=== PATIENT | male | born 1940 | race Caucasian/White ===

== ENCOUNTER 2021-07-23 18:41 | Inpatient (IN) | payer MEDICARE, BC ==
[~2021-07-23 18:41] MED LIST: Iopamidol 370 76% 100 ML VIAL ONE
[2021-07-23] MEDS ORDERED: Rocuronium Bromide 10 MG/ML (10ML VIAL) ONE (18:54)
[2021-07-23] MEDS ORDERED: EPINEPHrine 1 MG/10 ML Abboject SYRINGE ONE (18:55)
[2021-07-23 19:20] LABS: #Lymphocytes 0.9 thou/uL (1.20-3.40); #Neutrophils 10.3 thou/uL (1.40-6.50); %Basophils 0.1 % (0.0-1.0); %Lymphocytes 7.2 % (21.0-51.0); %Monocytes 8.3 % (0.0-10.0); %Neutrophils 84.4 % (42.0-75.0); Hemoglobin 14.6 g/dL (14.0-18.0); Mean Corpuscular HGB CONC 32.8 g/dL (32.0-36.0); Mean Corpuscular Hemoglobin 31.8 pg (27.0-31.0); Mean Corpuscular Volume 96.9 fL (78.0-98.0); Mean Platelet Volume 10.3 fL (7.4-10.4); Platelet Count 134 thou/uL (130-400); RBC Distribution Width 12.9 % (11.5-14.5); Red Blood Cell (RBC) Count 4.59 mill/uL (4.70-6.10); White Blood Cell (WBC) Count 12.2 thou/uL (4.8-10.8)
[2021-07-23 19:35] LABS: Actual Bicarbonate (HCO3a) 23.2 mEq/L (22-28); Analyzer IN Cardio ER; Base Excess (BEa) -3.1 mEq/L (-2.0 to +3.0); CO2 Tension 46.2 mmHg (35.0-45.0); Calcium, Ionized (arterial) 1.24 mmol/L (1.12-1.30); Carboxyhemoglobin (COHb) 0.3 gm% (0.0-3.0); Hemoglobin (Hb) 13.9 g/dL (14.0-18.0); O2 Tension (PaO2), arterial 128.2 mmHg (> 60.0); pH, Arterial 7.32 (7.35-7.45)
[2021-07-23 19:37] LABS: Puncture Site LRA
[2021-07-23 19:45] LABS: ALT (SGPT) 49 U/L (8-55); AST (SGOT) 150 U/L (5-34); Albumin 3.7 g/dL (3.4-4.8); Alkaline Phosphatase 54 U/L (40-110); Anion Gap 16 mmol/L (10-20); BUN (Urea Nitrogen) 52 mg/dL (8.4-25.7); Bilirubin, Total 0.4 mg/dL (0.2-1.2); Calc. Creatinine Clearance 0 mL/min (70-130); Calcium 9.6 mg/dL (7.8-10.44); Carbon Dioxide 26 mmol/L (23-31); Chloride 104 mmol/L (98-107); Globulin 2.9 g/dL (2.4-3.5); Glucose 97 mg/dL (83-110); Lipase 40 U/L (8-78); Potassium 4.2 mmol/L (3.5-5.1); Protein, Total 6.6 g/dL (5.8-8.1); Sodium 142 mmol/L (136-145)
[2021-07-23 19:58] LABS: CK (CPK) 5235 U/L (30-200)
[2021-07-23 20:13] LABS: CKMB 21.9 ng/mL (0-6.6)
[2021-07-23 20:18] LABS: SARS-CoV-2 NAA Rapid Test DETECTED (NotDetected)
[2021-07-23] MEDS ORDERED: Piperacillin/Tazobactam 4.5 GM VIAL ONE (20:26)
[2021-07-23 20:44] LABS: Bilirubin Negative (Negative); Blood, Urine 3+ (Negative); Clarity Clear (Clear); Glucose, Urine (Dipstick) Normal (Negative); Ketone, Urine Trace mg/dL (Negative); Leukocyte Negative Leu/uL (Negative); Mucous/LPF Rare LPF (<2+); Nitrite Negative (Negative); Protein, Urine (Dipstick) 70 mg/dL (Neg-Trace); RBC/HPF 0-3 HPF (0-3); Specific Gravity, Urine 1.013 (1.002-1.036); Squamous Epithelial 0-3 HPF (0-3); Urobilinogen Normal mg/dL (Less than 2); WBC/HPF 0-3 HPF (0-3); pH, Urine 5.5 (5.0-9.0)
[2021-07-23 20:49] LABS: Bacteria/HPF Rare-Few HPF (None Seen)
[2021-07-23] MEDS ORDERED: Vancomycin 1 GM/200 ML BAG ONE (20:56)
[2021-07-23] MEDS ORDERED: Albuterol Sulfate 2.5 mg/3 ml Neb NEB PRN ×2 (21:03→21:17)
[2021-07-23] MEDS ORDERED: Pharmacy to Dose VANCOMYCIN AND MEROPENEM IVPB PRN (21:07)
[2021-07-23] MEDS ORDERED: Albuterol 200 PUFF (6.7GM INHALER) INH PRN (21:13)
[2021-07-23] MEDS ORDERED: Atropine Sulfate 1 mg/10 ml Syringe ONE (21:26)
[2021-07-23 21:29] LABS: Amphetamine Not Detected (NotDetected); Barbiturates Screen Not Detected (NotDetected); Benzodiazepine Screen Not Detected (NotDetected); Cocaine Metabolite Screen Not Detected (NotDetected); Methadone Not Detected (NotDetected); Methamphetamine Not Detected (NotDetected); Opiate Screen Not Detected (NotDetected); Oxycodone Screen Not Detected (NotDetected); Phencyclidine (PCP) Not Detected (NotDetected); THC/Cannabinoid Screen Not Detected (NotDetected); Tricyclic Screen Not Detected (NotDetected)
[2021-07-23] MEDS ORDERED: Thiamine HCl 200 MG/2 ML VIAL SLOW IVP SCH (22:00)
[2021-07-23] MEDS ORDERED: Norepinephrine 8 MG/0.9% NS 250 ML IVPB PRN (22:09)
[2021-07-23] MEDS ORDERED: DISCONTINUE PREVIOUS NARCOTIC PAIN MEDICATIONS AND BENZODIAZEPINES FS SCH (22:15)
[2021-07-23] MEDS ORDERED: Ventilator Sedation Protocol 1 EACH FS SCH (22:15)
[2021-07-23] MEDS ORDERED: Fentanyl BOLUS 250 ML IVPB PRN (22:15)
[2021-07-23] MEDS ORDERED: Propofol BOLUS 1,000 MG/100 ML VIAL IV PRN (22:15)
[2021-07-23 22:21] LABS: Magnesium 1.9 mg/dL (1.6-2.6)
[2021-07-23 22:26] LABS: Critical Call Chem Troponin I RESULT DECREASING; Troponin I 2.031 ng/mL (< 0.028)
[2021-07-23] MEDS: Lorazepam 2 MG/ML VIAL SLOW IVP PRN (22:45)
[2021-07-23] MEDS: Dexamethasone 10 MG/ML VIAL SLOW IVP SCH (23:16)
[2021-07-23] MEDS: Sodium Chloride 0.9% 1,000 ML IV SCH (23:16)
[2021-07-23] MEDS: Famotidine 20 MG TAB PO SCH (23:16)
[2021-07-24 01:38] LABS: Critical Call Chem Troponin I RESULT DECREASING; Troponin I 1.872 ng/mL (< 0.028)
[2021-07-24] MEDS ORDERED: Meropenem 1 GM in Sodium Chloride 0.9% 100 ML IVPB SCH (02:00)
[2021-07-24] MEDS ORDERED: DOBUTamine 500 mg/250 ml 250 ML IVPB SCH (03:00)
[2021-07-24 03:57] LABS: #Lymphocytes 0.8 thou/uL (1.20-3.40); #Monocytes 0.5 thou/uL (0.11-0.59); %Basophils 0.1 % (0.0-1.0); %Eosinophils 0.1 % (0.0-10.0); %Lymphocytes 6.6 % (21.0-51.0); %Monocytes 4.2 % (0.0-10.0); Hemoglobin 12.9 g/dL (14.0-18.0); Mean Corpuscular HGB CONC 32.2 g/dL (32.0-36.0); Mean Corpuscular Hemoglobin 31.5 pg (27.0-31.0); Mean Corpuscular Volume 97.9 fL (78.0-98.0); Mean Platelet Volume 10.2 fL (7.4-10.4); Platelet Count 114 thou/uL (130-400); RBC Distribution Width 12.9 % (11.5-14.5); Red Blood Cell (RBC) Count 4.09 mill/uL (4.70-6.10); White Blood Cell (WBC) Count 11.3 thou/uL (4.8-10.8)
[2021-07-24 04:16] LABS: Anion Gap 14 mmol/L (10-20); BUN (Urea Nitrogen) 44 mg/dL (8.4-25.7); Calc. Creatinine Clearance 38 mL/min (70-130); Carbon Dioxide 19 mmol/L (23-31); Chloride 111 mmol/L (98-107); Glucose 120 mg/dL (83-110); Potassium 4.2 mmol/L (3.5-5.1); Sodium 140 mmol/L (136-145)
[2021-07-24 04:18] LABS: ALT (SGPT) 39 U/L (8-55); AST (SGOT) 101 U/L (5-34); Albumin 2.8 g/dL (3.4-4.8); Alkaline Phosphatase 39 U/L (40-110); Bilirubin, Direct 0.3 mg/dL (0.1-0.3); Bilirubin, Total 0.4 mg/dL (0.2-1.2); CRP (Inflammatory) 24.22 mg/dL (= or < 0.5); Magnesium 2.5 mg/dL (1.6-2.6); Protein, Total 5.7 g/dL (5.8-8.1)
[2021-07-24] MEDS: fentaNYL Citrate-0.9 % NaCl/PF 100 ML IVPB SCH ×2 (05:12→22:27)
[2021-07-24] MEDS: Sodium Chloride 0.9% 1,000 ML IV SCH ×2 (06:04→09:57)
[2021-07-24] MEDS ORDERED: Apixaban 5 MG TAB PO SCH (09:00)
[2021-07-24] MEDS: Dexamethasone 10 MG/ML VIAL SLOW IVP SCH ×2 (09:37→20:56)
[2021-07-24] MEDS: Ascorbic Acid 500 mg Chewable Tablet PO SCH (09:37)
[2021-07-24] MEDS: Heparin 5,000 UNITS/ML VIAL SC SCH ×3 (09:37→20:55)
[2021-07-24] MEDS: Folic Acid 1 MG TAB PO SCH (09:38)
[2021-07-24] MEDS: Thiamine 100 MG TAB PO SCH (09:38)
[2021-07-24] MEDS: Zinc Sulfate 220 MG CAP PO SCH (09:38)
[2021-07-24] MEDS: Meropenem 500 MG in Sodium Chloride 0.9% 100 ML IVPB SCH ×2 (09:45→22:28)
[2021-07-24] MEDS: Propofol 1,000 MG/100 ML VIAL IV PRN ×2 (10:14→19:24)
[2021-07-24] MEDS: Lactated Ringer's 1,000 ML IV SCH (13:08)
[2021-07-24 13:12] LABS: Legionella Urinary Ag Negative (Negative); Strep pneumo Urine Ag NEGATIVE (NEGATIVE)
[2021-07-24 15:23] LABS: INR-International Normal Ratio 1.1; PTT 41.2 sec (22.9-36.1); Prothrombin Time 14.7 sec (12.0-14.7)
[2021-07-24] MEDS: Lorazepam 2 MG/ML VIAL SLOW IVP PRN (19:16)
[2021-07-24 20:14] LABS: Vancomycin, Random 5.9 ug/mL (See Comment)
[2021-07-24] MEDS: hydrALAZINE 20 MG/ML VIAL SLOW IVP PRN (20:25)
[2021-07-24] MEDS: Senokot S 8.6-50 MG TAB PO SCH (20:55)
[2021-07-24] MEDS: Famotidine 20 MG TAB PO SCH (20:55)
[2021-07-24] MEDS ORDERED: Vancomycin 1 GM in Premix Bag 1 BAG IVPB SCH (21:00)
[2021-07-24] MEDS ORDERED: VANCOMYCIN 1.25 GM/250 ML BAG 1.25 GM in Premix Bag 1 BAG IVPB SCH (21:00)
[2021-07-25] MEDS: Lactated Ringer's 1,000 ML IV SCH (01:36)
[2021-07-25] MEDS: Propofol 1,000 MG/100 ML VIAL IV PRN (01:36)
[2021-07-25] MEDS: hydrALAZINE 20 MG/ML VIAL SLOW IVP PRN ×3 (03:04→21:12)
[2021-07-25 04:29] LABS: #Lymphocytes 0.4 thou/uL (1.20-3.40); #Monocytes 0.4 thou/uL (0.11-0.59); #Neutrophils 12.2 thou/uL (1.40-6.50); %Eosinophils 0.1 % (0.0-10.0); %Lymphocytes 3.3 % (21.0-51.0); %Monocytes 3.2 % (0.0-10.0); %Neutrophils 93.4 % (42.0-75.0); Hemoglobin 12.3 g/dL (14.0-18.0); Mean Corpuscular HGB CONC 31.7 g/dL (32.0-36.0); Mean Corpuscular Volume 97.6 fL (78.0-98.0); Mean Platelet Volume 10.1 fL (7.4-10.4); Platelet Count 147 thou/uL (130-400); Red Blood Cell (RBC) Count 3.97 mill/uL (4.70-6.10)
[2021-07-25 04:47] LABS: Anion Gap 13 mmol/L (10-20); BUN (Urea Nitrogen) 41 mg/dL (8.4-25.7); Calc. Creatinine Clearance 52 mL/min (70-130); Calcium 9.5 mg/dL (7.8-10.44); Carbon Dioxide 22 mmol/L (23-31); Chloride 114 mmol/L (98-107); Glucose 127 mg/dL (83-110); Potassium 3.7 mmol/L (3.5-5.1); Sodium 145 mmol/L (136-145)
[2021-07-25 04:49] LABS: CK (CPK) 481 U/L (30-200); CRP (Inflammatory) 22.96 mg/dL (= or < 0.5); Magnesium 1.9 mg/dL (1.6-2.6)
[2021-07-25] MEDS ORDERED: DOBUTamine 500 mg/250 ml 250 ML IVPB SCH (05:44)
[2021-07-25 07:38] LABS: Actual Bicarbonate (HCO3a) 19.5 mEq/L (22-28); Analyzer IN Cardio OR; Base Excess (BEa) -4.6 mEq/L (-2.0 to +3.0); Carboxyhemoglobin (COHb) 0.5 gm% (0.0-3.0); Hemoglobin (Hb) 12.4 g/dL (14.0-18.0); O2 Tension (PaO2), arterial 84.4 mmHg (> 60.0); Potassium - ABG Lab 3.79 mmol/L (3.70-5.30); pH, Arterial 7.39 (7.35-7.45)
[2021-07-25] MEDS: Meropenem 1 GM in Sodium Chloride 0.9% 100 ML IVPB SCH ×2 (07:45→15:57)
[2021-07-25 07:48] LABS: Puncture Site RRA
[2021-07-25] MEDS: Ascorbic Acid 500 mg Chewable Tablet PO SCH (10:00)
[2021-07-25] MEDS: Polyethylene Glycol 3350 17 GM Packet PER TUBE SCH (10:00)
[2021-07-25] MEDS: Zinc Sulfate 220 MG CAP PO SCH (10:00)
[2021-07-25] MEDS: Dexamethasone 10 MG/ML VIAL SLOW IVP SCH ×2 (10:01→20:40)
[2021-07-25] MEDS: BARICITINIB 2 MG TAB PO SCH (10:01)
[2021-07-25] MEDS: Folic Acid 1 MG TAB PO SCH (10:01)
[2021-07-25] MEDS: Senokot S 8.6-50 MG TAB PO SCH ×2 (10:01→20:40)
[2021-07-25] MEDS: Thiamine 100 MG TAB PO SCH (10:01)
[2021-07-25] MEDS: Heparin 5,000 UNITS/ML VIAL SC SCH ×3 (10:01→20:40)
[2021-07-25] MEDS: fentaNYL Citrate-0.9 % NaCl/PF 100 ML IVPB SCH (19:10)
[2021-07-25] MEDS ORDERED: Sodium Bicarbonate Tab 325 MG TAB PER TUBE PRN (19:30)
[2021-07-25] MEDS ORDERED: Pancrelipase DR 12,000 1 CAP FS PRN (19:30)
[2021-07-25 20:20] LABS: Vancomycin, Trough 10.9 ug/mL
[2021-07-25] MEDS: Famotidine 20 MG TAB PO SCH (20:40)
[2021-07-25] MEDS: Lorazepam 2 MG/ML VIAL SLOW IVP PRN (20:40)
[2021-07-25] MEDS: VANCOMYCIN 1.75 GM/350 ML BAG 1.75 GM in Premix Bag 1 BAG IVPB SCH (21:56)
[2021-07-26] MEDS: Meropenem 1 GM in Sodium Chloride 0.9% 100 ML IVPB SCH ×3 (00:06→16:03)
[2021-07-26] MEDS: Lorazepam 2 MG/ML VIAL SLOW IVP PRN ×4 (02:36→20:07)
[2021-07-26] MEDS: Morphine 4 MG/ML VIAL SLOW IVP PRN (03:00)
[2021-07-26 04:47] LABS: #Lymphocytes 0.4 thou/uL (1.20-3.40); #Monocytes 0.6 thou/uL (0.11-0.59); #Neutrophils 11.2 thou/uL (1.40-6.50); %Basophils 0.2 % (0.0-1.0); %Eosinophils 0.1 % (0.0-10.0); %Lymphocytes 3.1 % (21.0-51.0); %Monocytes 4.5 % (0.0-10.0); %Neutrophils 92.1 % (42.0-75.0); Hemoglobin 12.6 g/dL (14.0-18.0); Mean Corpuscular HGB CONC 33.4 g/dL (32.0-36.0); Mean Corpuscular Hemoglobin 32.8 pg (27.0-31.0); Mean Corpuscular Volume 98.2 fL (78.0-98.0); Mean Platelet Volume 9.4 fL (7.4-10.4); Platelet Count 186 thou/uL (130-400); RBC Distribution Width 13.1 % (11.5-14.5); Red Blood Cell (RBC) Count 3.86 mill/uL (4.70-6.10); White Blood Cell (WBC) Count 12.2 thou/uL (4.8-10.8)
[2021-07-26 05:18] LABS: Anion Gap 11 mmol/L (10-20); BUN (Urea Nitrogen) 47 mg/dL (8.4-25.7); Calc. Creatinine Clearance 59 mL/min (70-130); Calcium 9.9 mg/dL (7.8-10.44); Carbon Dioxide 26 mmol/L (23-31); Chloride 115 mmol/L (98-107); Glucose 136 mg/dL (83-110); Potassium 3.7 mmol/L (3.5-5.1); Sodium 148 mmol/L (136-145)
[2021-07-26 05:19] LABS: ALT (SGPT) 27 U/L (8-55); AST (SGOT) 29 U/L (5-34); Albumin 2.7 g/dL (3.4-4.8); Alkaline Phosphatase 41 U/L (40-110); Bilirubin, Direct 0.2 mg/dL (0.1-0.3); Bilirubin, Total 0.2 mg/dL (0.2-1.2); Protein, Total 5.8 g/dL (5.8-8.1)
[2021-07-26 05:20] LABS: CRP (Inflammatory) 12.29 mg/dL (= or < 0.5)
[2021-07-26] MEDS: Folic Acid 1 MG TAB PO SCH (08:19)
[2021-07-26] MEDS: Polyethylene Glycol 3350 17 GM Packet PER TUBE SCH (08:19)
[2021-07-26] MEDS: Famotidine 20 MG TAB PO SCH ×2 (08:19→20:06)
[2021-07-26] MEDS: Senokot S 8.6-50 MG TAB PO SCH ×2 (08:19→20:06)
[2021-07-26] MEDS: Dexamethasone 10 MG/ML VIAL SLOW IVP SCH ×2 (08:20→20:07)
[2021-07-26] MEDS: Thiamine 100 MG TAB PO SCH (08:20)
[2021-07-26] MEDS: Zinc Sulfate 220 MG CAP PO SCH (08:20)
[2021-07-26] MEDS: BARICITINIB 2 MG TAB PO SCH (08:20)
[2021-07-26] MEDS: Ascorbic Acid 500 mg Chewable Tablet PO SCH (08:20)
[2021-07-26] MEDS: Heparin 5,000 UNITS/ML VIAL SC SCH ×3 (08:21→20:06)
[2021-07-26] MEDS: hydrALAZINE 20 MG/ML VIAL SLOW IVP PRN ×3 (11:47→20:16)
[2021-07-26] MEDS: Dextrose 5 %-0.45 % NaCl 1,000 ML IV SCH (13:33)
[2021-07-26] MEDS: VANCOMYCIN 1.75 GM/350 ML BAG 1.75 GM in Premix Bag 1 BAG IVPB SCH (20:07)
[2021-07-27] MEDS: Meropenem 1 GM in Sodium Chloride 0.9% 100 ML IVPB SCH ×2 (00:08→08:11)
[2021-07-27] MEDS: Morphine 4 MG/ML VIAL SLOW IVP PRN ×2 (00:46→03:40)
[2021-07-27] MEDS: Lorazepam 2 MG/ML VIAL SLOW IVP PRN ×4 (00:46→21:11)
[2021-07-27] MEDS: Dextrose 5 %-0.45 % NaCl 1,000 ML IV SCH ×2 (00:51→14:03)
[2021-07-27] MEDS: hydrALAZINE 20 MG/ML VIAL SLOW IVP PRN ×3 (05:15→18:08)
[2021-07-27 06:18] LABS: #Lymphocytes 0.3 thou/uL (1.20-3.40); #Monocytes 0.6 thou/uL (0.11-0.59); #Neutrophils 8.6 thou/uL (1.40-6.50); %Basophils 0.1 % (0.0-1.0); %Eosinophils 0.2 % (0.0-10.0); %Lymphocytes 3.1 % (21.0-51.0); %Monocytes 6.4 % (0.0-10.0); %Neutrophils 90.3 % (42.0-75.0); Mean Corpuscular HGB CONC 32.6 g/dL (32.0-36.0); Mean Corpuscular Hemoglobin 31.8 pg (27.0-31.0); Mean Corpuscular Volume 97.5 fL (78.0-98.0); Mean Platelet Volume 9.2 fL (7.4-10.4); Platelet Count 196 thou/uL (130-400); RBC Distribution Width 13.3 % (11.5-14.5); Red Blood Cell (RBC) Count 4.08 mill/uL (4.70-6.10); White Blood Cell (WBC) Count 9.5 thou/uL (4.8-10.8)
[2021-07-27 06:19] LABS: Anion Gap 13 mmol/L (10-20); BUN (Urea Nitrogen) 53 mg/dL (8.4-25.7); Calc. Creatinine Clearance 0 mL/min (70-130); Calcium 9.6 mg/dL (7.8-10.44); Carbon Dioxide 24 mmol/L (23-31); Chloride 115 mmol/L (98-107); Glucose 211 mg/dL (83-110); Potassium 3.7 mmol/L (3.5-5.1); Sodium 148 mmol/L (136-145)
[2021-07-27 07:48] LABS: Actual Bicarbonate (HCO3a) 26.1 mEq/L (22-28); Base Excess (BEa) 0.7 mEq/L (-2.0 to +3.0); CO2 Tension 44.3 mmHg (35.0-45.0); Calcium, Ionized (arterial) 1.35 mmol/L (1.12-1.30); Carboxyhemoglobin (COHb) 0.6 gm% (0.0-3.0); Hemoglobin (Hb) 15.8 g/dL (14.0-18.0); O2 Tension (PaO2), arterial 85.8 mmHg (> 60.0); Potassium - ABG Lab 3.71 mmol/L (3.70-5.30); Puncture Site LRA; pH, Arterial 7.39 (7.35-7.45)
[2021-07-27 07:49] LABS: ALV-art Gradient 144.025 mmHg (0-20)
[2021-07-27] MEDS: Ascorbic Acid 500 mg Chewable Tablet PO SCH (08:10)
[2021-07-27] MEDS: Dexamethasone 10 MG/ML VIAL SLOW IVP SCH ×2 (08:10→09:58)
[2021-07-27] MEDS: Heparin 5,000 UNITS/ML VIAL SC SCH ×3 (08:10→21:10)
[2021-07-27] MEDS: Polyethylene Glycol 3350 17 GM Packet PER TUBE SCH (08:11)
[2021-07-27] MEDS: Zinc Sulfate 220 MG CAP PO SCH (08:11)
[2021-07-27] MEDS: Folic Acid 1 MG TAB PO SCH (08:11)
[2021-07-27] MEDS: Thiamine 100 MG TAB PO SCH (08:11)
[2021-07-27] MEDS: Senokot S 8.6-50 MG TAB PO SCH ×2 (08:11→21:10)
[2021-07-27] MEDS: Famotidine 20 MG TAB PO SCH ×2 (08:11→21:10)
[2021-07-27] MEDS: BARICITINIB 2 MG TAB PO SCH (08:11)
[2021-07-27] MEDS: cefTRIAXone\\ROCEPHIN 2 GM in Sodium Chloride 0.9% 100 ML IVPB SCH (09:58)
[2021-07-27] MEDS ORDERED: Amlodipine 10 MG TAB PER TUBE SCH (10:45)
[2021-07-27] MEDS: hydrALAZINE 25 MG TAB PER TUBE SCH ×2 (14:03→21:10)
[2021-07-27] MEDS: Propofol 1,000 MG/100 ML VIAL IV PRN (22:00)
[2021-07-28] MEDS: Morphine 4 MG/ML VIAL SLOW IVP PRN ×2 (02:28→14:10)
[2021-07-28] MEDS: Propofol 1,000 MG/100 ML VIAL IV PRN ×3 (02:29→22:56)
[2021-07-28] MEDS: Dextrose 5 %-0.45 % NaCl 1,000 ML IV SCH ×2 (02:29→16:02)
[2021-07-28] MEDS: Lorazepam 2 MG/ML VIAL SLOW IVP PRN ×3 (02:29→23:28)
[2021-07-28 04:43] LABS: #Lymphocytes 0.4 thou/uL (1.20-3.40); #Monocytes 0.6 thou/uL (0.11-0.59); #Neutrophils 6.9 thou/uL (1.40-6.50); %Basophils 0.1 % (0.0-1.0); %Eosinophils 0.3 % (0.0-10.0); %Lymphocytes 5.3 % (21.0-51.0); %Monocytes 7.1 % (0.0-10.0); %Neutrophils 87.2 % (42.0-75.0); Hemoglobin 12.4 g/dL (14.0-18.0); Mean Corpuscular HGB CONC 31.6 g/dL (32.0-36.0); Mean Corpuscular Hemoglobin 30.8 pg (27.0-31.0); Mean Corpuscular Volume 97.4 fL (78.0-98.0); Mean Platelet Volume 9.4 fL (7.4-10.4); Platelet Count 217 thou/uL (130-400); RBC Distribution Width 13.3 % (11.5-14.5); Red Blood Cell (RBC) Count 4.03 mill/uL (4.70-6.10); White Blood Cell (WBC) Count 7.9 thou/uL (4.8-10.8)
[2021-07-28 04:59] LABS: Anion Gap 9 mmol/L (10-20); BUN (Urea Nitrogen) 54 mg/dL (8.4-25.7); Calc. Creatinine Clearance 66 mL/min (70-130); Calcium 9.2 mg/dL (7.8-10.44); Carbon Dioxide 27 mmol/L (23-31); Chloride 113 mmol/L (98-107); Glucose 179 mg/dL (83-110); Potassium 3.3 mmol/L (3.5-5.1); Sodium 146 mmol/L (136-145)
[2021-07-28] MEDS: BARICITINIB 2 MG TAB PO SCH (08:06)
[2021-07-28] MEDS: hydrALAZINE 25 MG TAB PER TUBE SCH ×3 (08:06→21:23)
[2021-07-28] MEDS: Folic Acid 1 MG TAB PO SCH (08:06)
[2021-07-28] MEDS: Polyethylene Glycol 3350 17 GM Packet PER TUBE SCH (08:06)
[2021-07-28] MEDS: Famotidine 20 MG TAB PO SCH ×2 (08:06→21:23)
[2021-07-28] MEDS: Senokot S 8.6-50 MG TAB PO SCH ×2 (08:07→21:24)
[2021-07-28] MEDS: Zinc Sulfate 220 MG CAP PO SCH (08:07)
[2021-07-28] MEDS: Ascorbic Acid 500 mg Chewable Tablet PO SCH (08:07)
[2021-07-28] MEDS: Thiamine 100 MG TAB PO SCH (08:07)
[2021-07-28] MEDS: Heparin 5,000 UNITS/ML VIAL SC SCH ×3 (08:07→21:22)
[2021-07-28] MEDS: Amlodipine 10 MG TAB PER TUBE SCH (08:07)
[2021-07-28 08:08] LABS: Actual Bicarbonate (HCO3a) 25.8 mEq/L (22-28); CO2 Tension 41.8 mmHg (35.0-45.0); Calcium, Ionized (arterial) 1.34 mmol/L (1.12-1.30); Carboxyhemoglobin (COHb) 0.5 gm% (0.0-3.0); Hemoglobin (Hb) 13.3 g/dL (14.0-18.0); O2 Tension (PaO2), arterial 107.6 mmHg (> 60.0); Potassium - ABG Lab 3.56 mmol/L (3.70-5.30); pH, Arterial 7.41 (7.35-7.45)
[2021-07-28 08:11] LABS: Puncture Site LRA
[2021-07-28] MEDS: hydrALAZINE 20 MG/ML VIAL SLOW IVP PRN ×2 (10:08→23:47)
[2021-07-28] MEDS: Dexamethasone 10 MG/ML VIAL SLOW IVP SCH (10:08)
[2021-07-28] MEDS: cefTRIAXone\\ROCEPHIN 2 GM in Sodium Chloride 0.9% 100 ML IVPB SCH (10:09)
[2021-07-28] MEDS ORDERED: Vecuronium 10 MG VIAL IVP PRN (10:46)
[2021-07-29] MEDS: Lorazepam 2 MG/ML VIAL SLOW IVP PRN ×2 (00:48→05:59)
[2021-07-29] MEDS: Propofol 1,000 MG/100 ML VIAL IV PRN ×4 (04:15→20:13)
[2021-07-29] MEDS: Dextrose 5 %-0.45 % NaCl 1,000 ML IV SCH ×2 (04:15→20:19)
[2021-07-29 05:24] LABS: ALT (SGPT) 196 U/L (8-55); AST (SGOT) 66 U/L (5-34); Albumin 2.6 g/dL (3.4-4.8); Alkaline Phosphatase 52 U/L (40-110); Anion Gap 13 mmol/L (10-20); BUN (Urea Nitrogen) 53 mg/dL (8.4-25.7); Bilirubin, Direct 0.1 mg/dL (0.1-0.3); Bilirubin, Total 0.2 mg/dL (0.2-1.2); Calc. Creatinine Clearance 67 mL/min (70-130); Calcium 9.2 mg/dL (7.8-10.44); Carbon Dioxide 28 mmol/L (23-31); Chloride 111 mmol/L (98-107); Glucose 166 mg/dL (83-110); Potassium 3.8 mmol/L (3.5-5.1); Protein, Total 5.6 g/dL (5.8-8.1); Sodium 148 mmol/L (136-145)
[2021-07-29 06:55] LABS: Hemoglobin 12.7 g/dL (14.0-18.0); Mean Corpuscular HGB CONC 30.7 g/dL (32.0-36.0); Mean Corpuscular Hemoglobin 30.9 pg (27.0-31.0); Mean Platelet Volume 9.8 fL (7.4-10.4); Platelet Count 197 thou/uL (130-400); RBC Distribution Width 13.4 % (11.5-14.5); Red Blood Cell (RBC) Count 4.12 mill/uL (4.70-6.10); White Blood Cell (WBC) Count 7.6 thou/uL (4.8-10.8)
[2021-07-29 08:09] LABS: Actual Bicarbonate (HCO3a) 28.1 mEq/L (22-28); Base Excess (BEa) 2.5 mEq/L (-2.0 to +3.0); CO2 Tension 47.3 mmHg (35.0-45.0); Carboxyhemoglobin (COHb) 0.6 gm% (0.0-3.0); O2 Tension (PaO2), arterial 97.7 mmHg (> 60.0); Potassium - ABG Lab 3.61 mmol/L (3.70-5.30); pH, Arterial 7.39 (7.35-7.45)
[2021-07-29] MEDS: Ascorbic Acid 500 mg Chewable Tablet PO SCH (08:09)
[2021-07-29] MEDS: BARICITINIB 2 MG TAB PO SCH (08:09)
[2021-07-29] MEDS: Folic Acid 1 MG TAB PO SCH (08:10)
[2021-07-29] MEDS: Famotidine 20 MG TAB PO SCH ×2 (08:10→20:13)
[2021-07-29] MEDS: Amlodipine 10 MG TAB PER TUBE SCH (08:10)
[2021-07-29] MEDS: Thiamine 100 MG TAB PO SCH (08:10)
[2021-07-29] MEDS: hydrALAZINE 25 MG TAB PER TUBE SCH ×3 (08:10→20:12)
[2021-07-29] MEDS: Heparin 5,000 UNITS/ML VIAL SC SCH ×3 (08:11→20:20)
[2021-07-29] MEDS: Zinc Sulfate 220 MG CAP PO SCH (08:11)
[2021-07-29 08:15] LABS: ALV-art Gradient 164.025 mmHg (0-20); Puncture Site RRA
[2021-07-29 08:36] LABS: Band 8 % (5-11); Lymphocytes 13 % (21-51); MDiff Complete? YES; Monocytes 6 % (0-10); Neutrophil 73 % (42-75); Platelet Morphology Comment Appears Adequate; RBC Morphology Normal
[2021-07-29] MEDS: Senokot S 8.6-50 MG TAB PO SCH ×2 (09:01→20:12)
[2021-07-29] MEDS: Polyethylene Glycol 3350 17 GM Packet PER TUBE SCH (09:01)
[2021-07-29] MEDS: cefTRIAXone\\ROCEPHIN 2 GM in Sodium Chloride 0.9% 100 ML IVPB SCH (11:17)
[2021-07-29] MEDS: Dexamethasone 10 MG/ML VIAL SLOW IVP SCH (11:18)
[2021-07-29 13:56] VITALS: BMI 27.7
[2021-07-29] MEDS: Acetaminophen 325 MG TAB PO PRN (20:12)
[2021-07-30] MEDS: Propofol 1,000 MG/100 ML VIAL IV PRN ×4 (00:50→20:18)
[2021-07-30 05:05] LABS: Anion Gap 3 mmol/L (10-20); BUN (Urea Nitrogen) 54 mg/dL (8.4-25.7); Calc. Creatinine Clearance 70 mL/min (70-130); Calcium 9.3 mg/dL (7.8-10.44); Carbon Dioxide 35 mmol/L (23-31); Chloride 110 mmol/L (98-107); Glucose 122 mg/dL (83-110); Potassium 4.3 mmol/L (3.5-5.1); Sodium 144 mmol/L (136-145)
[2021-07-30 05:07] LABS: ALT (SGPT) 156 U/L (8-55); AST (SGOT) 36 U/L (5-34); Albumin 2.7 g/dL (3.4-4.8); Alkaline Phosphatase 54 U/L (40-110); Bilirubin, Direct 0.2 mg/dL (0.1-0.3); Bilirubin, Total 0.2 mg/dL (0.2-1.2); Protein, Total 5.8 g/dL (5.8-8.1)
[2021-07-30 05:43] LABS: Band 5 % (5-11); Hemoglobin 13.4 g/dL (14.0-18.0); Lymphocytes 3 % (21-51); MDiff Complete? YES; Mean Corpuscular HGB CONC 31.9 g/dL (32.0-36.0); Mean Corpuscular Hemoglobin 31.7 pg (27.0-31.0); Mean Corpuscular Volume 99.6 fL (78.0-98.0); Mean Platelet Volume 9.5 fL (7.4-10.4); Monocytes 10 % (0-10); Myelocyte 1 % (0-0); Neutrophil 81 % (42-75); Platelet Count 253 thou/uL (130-400); RBC Distribution Width 13.4 % (11.5-14.5); Red Blood Cell (RBC) Count 4.21 mill/uL (4.70-6.10); White Blood Cell (WBC) Count 12.7 thou/uL (4.8-10.8)
[2021-07-30] MEDS: BARICITINIB 2 MG TAB PO SCH (08:44)
[2021-07-30] MEDS: Ascorbic Acid 500 mg Chewable Tablet PO SCH (08:44)
[2021-07-30] MEDS: Zinc Sulfate 220 MG CAP PO SCH (08:44)
[2021-07-30] MEDS: Heparin 5,000 UNITS/ML VIAL SC SCH ×3 (08:44→20:19)
[2021-07-30] MEDS: hydrALAZINE 25 MG TAB PER TUBE SCH ×3 (08:44→20:19)
[2021-07-30] MEDS: Senokot S 8.6-50 MG TAB PO SCH ×2 (08:45→20:20)
[2021-07-30] MEDS: Famotidine 20 MG TAB PO SCH ×2 (08:45→20:20)
[2021-07-30] MEDS: Amlodipine 10 MG TAB PER TUBE SCH (08:45)
[2021-07-30] MEDS: Folic Acid 1 MG TAB PO SCH (08:45)
[2021-07-30] MEDS: Thiamine 100 MG TAB PO SCH (08:45)
[2021-07-30] MEDS: Polyethylene Glycol 3350 17 GM Packet PER TUBE SCH (08:45)
[2021-07-30] MEDS: cefTRIAXone\\ROCEPHIN 2 GM in Sodium Chloride 0.9% 100 ML IVPB SCH (08:46)
[2021-07-30] MEDS: Dextrose 5 %-0.45 % NaCl 1,000 ML IV SCH (14:03)
[2021-07-30] MEDS: Dexamethasone 10 MG/ML VIAL SLOW IVP SCH (14:56)
[2021-07-30] MEDS ORDERED: Furosemide 20 MG/2 ML VIAL SLOW IVP SCH (17:15)
[2021-07-30] MEDS ORDERED: Aspirin 325 MG TAB PO SCH ×2 (17:15)
[2021-07-30] MEDS: Morphine 4 MG/ML VIAL SLOW IVP PRN (20:18)
[2021-07-30] MEDS: Acetaminophen 325 MG TAB PO PRN (20:20)
[2021-07-30] MEDS: Atorvastatin Calcium 40 MG TAB PO SCH (20:20)
[2021-07-31] MEDS: Dextrose 5 %-0.45 % NaCl 1,000 ML IV SCH (03:35)
[2021-07-31 04:32] LABS: ALT (SGPT) 124 U/L (8-55); AST (SGOT) 28 U/L (5-34); Albumin 2.8 g/dL (3.4-4.8); Alkaline Phosphatase 49 U/L (40-110); Anion Gap 8 mmol/L (10-20); BUN (Urea Nitrogen) 57 mg/dL (8.4-25.7); Bilirubin, Direct 0.2 mg/dL (0.1-0.3); Bilirubin, Total 0.3 mg/dL (0.2-1.2); Calc. Creatinine Clearance 67 mL/min (70-130); Calcium 9.2 mg/dL (7.8-10.44); Carbon Dioxide 34 mmol/L (23-31); Chloride 106 mmol/L (98-107); Glucose 189 mg/dL (83-110); Potassium 4.3 mmol/L (3.5-5.1); Protein, Total 5.7 g/dL (5.8-8.1); Sodium 144 mmol/L (136-145)
[2021-07-31] MEDS: Propofol 1,000 MG/100 ML VIAL IV PRN ×3 (05:25→20:48)
[2021-07-31 05:27] LABS: Hemoglobin 12.9 g/dL (14.0-18.0); Mean Corpuscular HGB CONC 31.4 g/dL (32.0-36.0); Mean Corpuscular Hemoglobin 31.6 pg (27.0-31.0); Platelet Count 270 thou/uL (130-400); RBC Distribution Width 13.3 % (11.5-14.5); White Blood Cell (WBC) Count 11.1 thou/uL (4.8-10.8)
[2021-07-31 05:49] LABS: Band 16 % (5-11); Lymphocytes 5 % (21-51); MDiff Complete? YES; Monocytes 4 % (0-10); Myelocyte 1 % (0-0); Neutrophil 73 % (42-75); Reactive Lymphocytes 1 % (0-10)
[2021-07-31] MEDS ORDERED: Aspirin 325 MG TAB PO SCH (09:00)
[2021-07-31] MEDS: cefTRIAXone\\ROCEPHIN 2 GM in Sodium Chloride 0.9% 100 ML IVPB SCH (09:36)
[2021-07-31] MEDS: Polyethylene Glycol 3350 17 GM Packet PER TUBE SCH (09:40)
[2021-07-31] MEDS: BARICITINIB 2 MG TAB PO SCH (09:40)
[2021-07-31] MEDS: Aspirin 81 mg Enteric Coated Tablet PO SCH (09:40)
[2021-07-31] MEDS: Ascorbic Acid 500 mg Chewable Tablet PO SCH (09:41)
[2021-07-31] MEDS: Senokot S 8.6-50 MG TAB PO SCH ×2 (09:41→20:53)
[2021-07-31] MEDS: Famotidine 20 MG TAB PO SCH ×2 (09:41→20:52)
[2021-07-31] MEDS: Amlodipine 10 MG TAB PER TUBE SCH (09:42)
[2021-07-31] MEDS: hydrALAZINE 25 MG TAB PER TUBE SCH ×3 (09:42→20:53)
[2021-07-31] MEDS: Folic Acid 1 MG TAB PO SCH (09:43)
[2021-07-31] MEDS: Thiamine 100 MG TAB PO SCH (09:43)
[2021-07-31] MEDS: Zinc Sulfate 220 MG CAP PO SCH (09:43)
[2021-07-31] MEDS: Heparin 5,000 UNITS/ML VIAL SC SCH ×3 (09:44→20:54)
[2021-07-31] MEDS: Dexamethasone 10 MG/ML VIAL SLOW IVP SCH (09:47)
[2021-07-31] MEDS ORDERED: Dextrose 5 %-0.45 % NaCl 1,000 ML IV SCH (14:15)
[2021-07-31] MEDS: Acetaminophen 325 MG TAB PO PRN (20:52)
[2021-07-31] MEDS: Morphine 4 MG/ML VIAL SLOW IVP PRN (20:53)
[2021-07-31] MEDS: Atorvastatin Calcium 40 MG TAB PO SCH (20:53)
[2021-07-31] MEDS: hydrALAZINE 20 MG/ML VIAL SLOW IVP PRN (22:06)
[2021-08-01] MEDS: Dextrose 5 %-0.45 % NaCl 1,000 ML IV SCH (01:29)
[2021-08-01] MEDS: Propofol 1,000 MG/100 ML VIAL IV PRN ×2 (03:28→11:01)
[2021-08-01 04:19] LABS: ALT (SGPT) 118 U/L (8-55); AST (SGOT) 42 U/L (5-34); Albumin 2.6 g/dL (3.4-4.8); Alkaline Phosphatase 49 U/L (40-110); Anion Gap 23 mmol/L (10-20); BUN (Urea Nitrogen) 55 mg/dL (8.4-25.7); Bilirubin, Direct 0.2 mg/dL (0.1-0.3); Bilirubin, Total 0.3 mg/dL (0.2-1.2); Calc. Creatinine Clearance 82 mL/min (70-130); Calcium 9.3 mg/dL (7.8-10.44); Carbon Dioxide 18 mmol/L (23-31); Chloride 106 mmol/L (98-107); Globulin 2.7 g/dL (2.4-3.5); Glucose 147 mg/dL (83-110); Potassium 4.2 mmol/L (3.5-5.1); Protein, Total 5.3 g/dL (5.8-8.1); Sodium 143 mmol/L (136-145)
[2021-08-01 04:37] LABS: Band 5 % (5-11); Hemoglobin 12.4 g/dL (14.0-18.0); Lymphocytes 5 % (21-51); MDiff Complete? YES; Mean Corpuscular HGB CONC 31.3 g/dL (32.0-36.0); Mean Corpuscular Volume 99.1 fL (78.0-98.0); Mean Platelet Volume 9.4 fL (7.4-10.4); Monocytes 7 % (0-10); Neutrophil 83 % (42-75); Platelet Count 290 thou/uL (130-400); RBC Distribution Width 13.2 % (11.5-14.5); White Blood Cell (WBC) Count 14.1 thou/uL (4.8-10.8)
[2021-08-01] MEDS ORDERED: Acetaminophen 650 MG/20.3 ML UDCUP PO PRN (07:45)
[2021-08-01] MEDS ORDERED: Piperacillin/Tazobactam 3.375 GM in Sodium Chloride 0.9% 100 ML IVPB SCH ×3 (08:59→14:00)
[2021-08-01] MEDS: Heparin 5,000 UNITS/ML VIAL SC SCH (09:15)
[2021-08-01] MEDS: Folic Acid 1 MG TAB PO SCH (09:30)
[2021-08-01] MEDS: Aspirin 81 mg Enteric Coated Tablet PO SCH (09:30)
[2021-08-01] MEDS: Senokot S 8.6-50 MG TAB PO SCH (09:31)
[2021-08-01] MEDS: Thiamine 100 MG TAB PO SCH (09:31)
[2021-08-01] MEDS: Amlodipine 10 MG TAB PER TUBE SCH (09:31)
[2021-08-01] MEDS: hydrALAZINE 25 MG TAB PER TUBE SCH (09:31)
[2021-08-01] MEDS: Zinc Sulfate 220 MG CAP PO SCH (09:32)
[2021-08-01] MEDS: BARICITINIB 2 MG TAB PO SCH (09:32)
[2021-08-01] MEDS: Ascorbic Acid 500 mg Chewable Tablet PO SCH (09:32)
[2021-08-01] MEDS: Dexamethasone 10 MG/ML VIAL SLOW IVP SCH (09:33)
[2021-08-01] MEDS: Famotidine 20 MG TAB PO SCH (09:33)
[2021-08-01] MEDS: Polyethylene Glycol 3350 17 GM Packet PER TUBE SCH (09:33)
[2021-08-01] MEDS ORDERED: Morphine 4 MG/ML VIAL SLOW IVP SCH (10:30)
[2021-08-01] MEDS ORDERED: Lorazepam 2 MG/ML VIAL SLOW IVP PRN (10:33)
[2021-08-01] MEDS ORDERED: Scopolamine 1.5 mg/72 hour Patch TD SCH (10:45)
[2021-08-01 11:04] VITALS: BP 156/78
[2021-08-01] MEDS ORDERED: Morphine 10 MG/ML VIAL SLOW IVP PRN (11:10)
[2021-08-01 12:08] VITALS: TEMP 98.4
== END 2021-08-01 12:50 | disposition hospice, inpatient (51) | DRG 870 ==
LOC: ERS 18:41 → CCU 20:50
PROVIDERS: ADMIT Internal Medicine; ATTEND Internal Medicine
PROC: 8E0ZXY6 Isolation (ICD-10-PCS; principal; 2021-07-23)
PROC: 5A1955Z Respiratory Ventilation, Greater than 96 Consecutive Hours (ICD-10-PCS; 2021-07-23)
PROC: 0BH17EZ Insertion of Endotracheal Airway into Trachea, Via Natural or Artificial Opening (ICD-10-PCS; 2021-07-23)
PROC: 3E033XZ Introduction of Vasopressor into Peripheral Vein, Percutaneous Approach (ICD-10-PCS; 2021-07-23)
PROC: XW0DXM6 Introduction of Baricitinib into Mouth and Pharynx, External Approach, New Technology Group 6 (ICD-10-PCS; 2021-07-25)
PROC: 0DH67UZ Insertion of Feeding Device into Stomach, Via Natural or Artificial Opening (ICD-10-PCS; 2021-07-28)
PROC: 3E0G76Z Introduction of Nutritional Substance into Upper GI, Via Natural or Artificial Opening (ICD-10-PCS; 2021-07-28)
DX: A41.89 Other specified sepsis (principal); J96.01 Acute respiratory failure with hypoxia; U07.1 COVID-19; J12.82 Pneumonia due to coronavirus disease 2019; I21.4 Non-ST elevation (NSTEMI) myocardial infarction; J69.0 Pneumonitis due to inhalation of food and vomit; I63.512 Cerebral infarction due to unspecified occlusion or stenosis of left middle cerebral artery; I69.351 Hemiplegia and hemiparesis following cerebral infarction affecting right dominant side; M62.82 Rhabdomyolysis; N17.9 Acute kidney failure, unspecified; J98.11 Atelectasis; E87.0 Hyperosmolality and hypernatremia; G93.40 Encephalopathy, unspecified; Z66 Do not resuscitate; Z51.5 Encounter for palliative care; I12.9 Hypertensive chronic kidney disease with stage 1 through stage 4 chronic kidney disease, or unspecified chronic kidney disease; N18.30 Chronic kidney disease, stage 3 unspecified; N40.0 Benign prostatic hyperplasia without lower urinary tract symptoms; I25.10 Atherosclerotic heart disease of native coronary artery without angina pectoris; F17.210 Nicotine dependence, cigarettes, uncomplicated; Z60.2 Problems related to living alone; I48.0 Paroxysmal atrial fibrillation; R00.1 Bradycardia, unspecified; E86.0 Dehydration; Z79.899 Other long term (current) drug therapy; Z79.01 Long term (current) use of anticoagulants; F10.20 Alcohol dependence, uncomplicated; J44.9 Chronic obstructive pulmonary disease, unspecified
CPT/HCPCS: 31500; 36415; 36416; 36600; 70450; 71045; 71275; 80048; 80053; 80076; 80202; 80306; 81003; 81015; 82550; 82553; 82805; 83605; 83690; 83735; 83880; 84145; 84443; 84484; 85025; 85610; 85730; 86140; 87040; 87070; 87086; 87205; 87449; 87899; 93005; 93010; 93306; 94002; 94003; 96365; 96366; 96367; 96375; 99292; J0171; J0360; J0461; J0696; J1100; J1250; J1644; J1940; J2060; J2185; J2270; J2543; J2704; J3370; J3411; J3490; J7042; J7050; J7120; Q9967; U0002

== ENCOUNTER 2021-08-01 13:19 | Inpatient (IN) | payer OTHER ==
[2021-08-01] MEDS ORDERED: Atropine Sulfate 1% Ophth Soln 5 ml Bottle PO PRN (13:31)
[2021-08-01] MEDS ORDERED: Promethazine HCl 25 MG SUPP PR PRN (13:45)
[2021-08-01] MEDS ORDERED: Acetaminophen 650 MG Suppository PR PRN (13:45)
[2021-08-01] MEDS ORDERED: Zolpidem Tartrate 5 MG TAB PO PRN (13:45)
[2021-08-01] MEDS ORDERED: Ondansetron PF 4 MG/2 ML Vial IVP PRN (13:45)
[2021-08-01] MEDS ORDERED: Milk Of Magnesia 30 ML UDCUP PO PRN (13:45)
[2021-08-01] MEDS ORDERED: Loperamide HCl 2 MG CAP PO PRN (13:45)
[2021-08-01] MEDS ORDERED: Scopolamine 1.5 mg/72 hour Patch TOP PRN (13:45)
[2021-08-01] MEDS ORDERED: Morphine 10 MG/0.5 ML ORAL SYRINGE SL PRN (13:45)
[2021-08-01] MEDS ORDERED: diphenhydrAMINE 50 MG/ML VIAL IVP PRN (13:45)
[2021-08-01] MEDS ORDERED: Haloperidol Lactate 5 MG/ML VIAL SLOW IVP PRN (13:45)
[2021-08-01] MEDS ORDERED: Lorazepam 2 MG/ML VIAL SLOW IVP PRN (13:45)
[2021-08-01] MEDS ORDERED: Senokot 8.6 MG TAB PO PRN (13:45)
[2021-08-01] MEDS ORDERED: Ondansetron ODT 4 MG TAB PO PRN (13:45)
[2021-08-01] MEDS: Lorazepam 2 MG/ML VIAL SLOW IVP PRN ×3 (13:51→16:06)
[2021-08-01] MEDS: Morphine 4 MG/ML VIAL SLOW IVP PRN ×3 (13:52→16:06)
[2021-08-01 20:57] VITALS: BP 74/46; TEMP 97.1
== END 2021-08-01 21:44 | disposition expired | DRG 951 ==
LOC: CCU 13:19 → T4-B 16:58
PROVIDERS: ADMIT Family Medicine; ATTEND Family Medicine
DX: Z51.5 Encounter for palliative care (principal); Z66 Do not resuscitate; A41.9 Sepsis, unspecified organism; J96.01 Acute respiratory failure with hypoxia; J69.0 Pneumonitis due to inhalation of food and vomit; U07.1 COVID-19; I21.4 Non-ST elevation (NSTEMI) myocardial infarction; G93.41 Metabolic encephalopathy; I69.351 Hemiplegia and hemiparesis following cerebral infarction affecting right dominant side; M62.82 Rhabdomyolysis; N17.9 Acute kidney failure, unspecified; I48.20 Chronic atrial fibrillation, unspecified; J44.9 Chronic obstructive pulmonary disease, unspecified; N18.30 Chronic kidney disease, stage 3 unspecified; I12.9 Hypertensive chronic kidney disease with stage 1 through stage 4 chronic kidney disease, or unspecified chronic kidney disease; F10.10 Alcohol abuse, uncomplicated; N40.0 Benign prostatic hyperplasia without lower urinary tract symptoms; F17.210 Nicotine dependence, cigarettes, uncomplicated; Z79.899 Other long term (current) drug therapy; Z79.01 Long term (current) use of anticoagulants; Z98.890 Other specified postprocedural states
CPT/HCPCS: J2060; J2270